=== PATIENT | male | born 1940 | race Hispanic/Latino ===

== ENCOUNTER 2021-11-22 09:22 | Day surgery (SDC) | payer MEDICARE ==
[~2021-11-22 09:22] MED LIST: SODIUM CHLORIDE 0.9% 1000 ML 1,000 ML IV SCH
--- NOTE | 2021-11-22 10:28 | Anesthesia Consultation ---
Anesthesia Consult and Med Hx Date of service: 11/22/21 - Airway Anesthetic Teeth Evaluation: Good ROM Head & Neck: Inadequate (extremely limited extension s/p neck surgery x2) Mental/Hyoid Distance: Adequate Mallampati Class: Class II Intubation Access Assessment: Possibly Difficult - Pulmonary Exam CTA: Yes - Cardiac Exam Cardiac Exam: RRR (irregular rate/rhythm, systolic murmur) - Pre-Operative Health Status ASA Pre-Surgery Classification: ASA3 Proposed Anesthetic Plan: MAC - Pulmonary Hx Smoking: Yes (remote hx smoking) SOB: Yes (w/ exertion, chronic, unchanged) Home Oxygen Therapy: No - Cardiovascular System Hx Hypertension: Yes Hx Coronary Artery Disease: Yes Hx Percutaneous Transluminal Coronary Angioplasty (PTCA): No Hx Cardia Arrhythmia: Yes (a-fib; last coumadin 11/15/21) Hx Pacemaker: No Hx Internal Defibrillator: No Hx Valvular Heart Disease: Yes (minimal ; mild MR, [place], [place]) - Central Nervous System CVA: No - Endocrine Hx Renal Disease: No Hx Liver Disease: No Hx Insulin Dependent Diabetes: No Hx Non-Insulin Dependent Diabetes: No Hx Thyroid Disease: No - Other Systems Hx Obesity: Yes - Additional Comments Anesthesia Medical History Comments: No hx anesthetic complications. Pre- procedure cardiac on chart reviewed.
--- NOTE | 2021-11-22 10:29 | Anesthesia Day of Surgery ---
Anesthesia Day of Surgery - Day of Surgery Patient Examined: Yes Patient H&P Reviewed: Yes Patient is NPO: Yes Beta Blockers: Yes (atenolol today) Cardiac Clearance: Yes
[2021-11-22] MEDS ORDERED: LIDOCAINE MPF (2%) 20 MG/1 ML VIAL 5 ML ONE (10:55)
[2021-11-22] MEDS ORDERED: propofoL 200 MG/20 ML VIAL IV ONE (10:55)
--- NOTE | 2021-11-22 11:27 | Procedure Note ---
Date of procedure: 11/22/21 Pre-op diagnosis: Dysphagia Post-op diagnosis: other (Mild,Benign Esophael Stenosis (s/p Dilation)/ Mild to Moderate Erosive Esophagitis/R/O Eosinophilic Esophagitis/ Gastritis/ R/O Celiac disease) Procedure: EGD with Biopsy and S/P Esophageal Dilation (20 mm Balloon) Anesthesia: MAC Surgeon: MARISOL ZAMBRANO Estimated blood loss: minimal (Treat ith PPI and Baclofedn; avoid aspirin and NSAID anticoagulants for 3 days; otherwise resume previouys medication and F/U in 1 to 2 weeks ([phone]).) Pathology: list Specimen disposition: to lab Condition: stable
--- NOTE | 2021-11-22 11:34 | Operative Report ---
DATE OF SURGERY: 11/22/2021 PROCEDURE: EGD with cold biopsy and status post esophageal balloon dilation. INDICATIONS: This is an 81-year-old white male who has lately been having some dysphagia and symptoms suggestive of atypical GERD. DESCRIPTION OF PROCEDURE: Procedure was done to assess the situation and to do an esophageal dilation if needed. Procedure was done after getting informed consent, with MAC anesthesia. The instrument was passed through the hypopharynx into the esophagus, which did show a mild benign esophageal stenosis. The patient underwent a dilation at the end of the procedure with a 20 mm esophageal balloon that was maintained for a minute. There was some evidence of [id number] distal erosive esophagitis and photodocumentation and biopsy was done from the distal esophagus to assess for the severity of the erosive esophagitis. Additional biopsy was done from the mid esophagus to assess for eosinophilic esophagitis. The stomach showed gastritis. Biopsy was done from the gastric antrum, gastric body and angular incisura to rule out for H. pylori and atrophic gastritis. The pylorus was patent. Duodenum in the first and second portion appeared normal. Biopsy was done from the second part to rule out for celiac disease. There was no evidence of any peptic ulcer disease noted within the gastric or the duodenal lumen. There was minimal bleeding associated with the procedure. No complications associated with the procedure. ASSESSMENT: Dysphagia, mild benign esophageal stenosis, status post esophageal dilation with a 20 mm balloon. [id number] erosive esophagitis, rule out eosinophilic esophagitis, gastritis, rule out celiac disease. No peptic ulcer disease noted. PLAN: To treat the patient with PPI as well as baclofen. Have the patient avoid aspirin and aspirin-related products for the next few days. The patient will be asked to start his diet on a soft diet and then progress as tolerated and also advised to follow up in the office in 1-2 weeks' time. Procedure was done in the GI lab with assistance of the GI lab team, which included the GI nurse, the electronic lab technician and with assistance of Anesthesia. TID: [id number] RECEIPT: [id number] JUANITA/TAMAR
--- NOTE | 2021-11-22 12:32 | Post Anesthesia Evaluation ---
- Post Anesthesia Evaluation Patient Participated: Yes Airway Patent: Yes Stable Respiratory Function: Yes Nausea/Vomiting: No Temp > 96.8F: Yes Pain Manageable: Yes Adequeate Hydration: Yes Anesthesia Complications: No
[2021-11-22 17:35] VITALS: BP 134/70
== END 2021-11-22 12:00 | disposition home or self-care (01) ==
LOC: GIO 09:22
DX: R13.10 Dysphagia, unspecified (principal); K22.2 Esophageal obstruction; K29.70 Gastritis, unspecified, without bleeding; K21.00 Gastro-esophageal reflux disease with esophagitis, without bleeding; K29.50 Unspecified chronic gastritis without bleeding; K31.89 Other diseases of stomach and duodenum; I42.9 Cardiomyopathy, unspecified; I25.10 Atherosclerotic heart disease of native coronary artery without angina pectoris; E78.00 Pure hypercholesterolemia, unspecified; I48.91 Unspecified atrial fibrillation; I10 Essential (primary) hypertension; E66.9 Obesity, unspecified; Z68.32 Body mass index [BMI] 32.0-32.9, adult; Z88.8 Allergy status to other drugs, medicaments and biological substances; Z79.899 Other long term (current) drug therapy; Z98.890 Other specified postprocedural states; Z87.891 Personal history of nicotine dependence
CPT/HCPCS: 43239; 43249; 88305; C1726; J2704; J7030; 88342